=== PATIENT | female | born 1960 | race Caucasian/White ===

== ENCOUNTER 2020-05-20 09:12 | Outpatient (CLI) | payer BC ==
--- NOTE | 2020-06-01 12:17 | Mammography Report ---
UNILATERAL RIGHT DIGITAL SCREENING MAMMOGRAM 3D/2D: 05/20/2020 CLINICAL: Routine screening. Personal history of left breast cancer. Comparison is made to exams dated: 06/08/2019 mammogram, 05/12/2018 mammogram, 04/19/2017 mammogram, and 04/23/2016 mammogram - [facility]. There are scattered fibroglandular elements in right breas t. There are benign post operative findings in the right breast. No significant masses, calcifications, or other findings are seen in the breast. There has been no significant interval change. IMPRESSION: BENIGN There is no mammographic evidence of malignancy. A 1 year screening mammogram is recommended. This exam was interpreted at Station ID: [id number]. NOTE: For mammograms, a report in lay terms will be sent to the patient. Approximately 15% of breast malignancies will not be visualized mammographically. In the management of a palpable breast mass, a negative mammogram must not discourage biopsy of a clinically suspicious lesion. Electronically Signed By: Kristal hidalgo/jeremiah:06/01/2020 11:32:14 ACR BI-RADS Category 2: Benign Finding(s) 3342F PARENCHYMAL PATTERN: (A) - The breast(s) demonstrate(s) scattered fibroglandular densities. BI-RADS CATEGORY: (2) - 2 RECOMMENDATION: (ANNUAL) - Recommend routine annual screening mammography. [id number] 1 year screening LATERALITY: (B)
== END 2020-05-20 09:13 | disposition home or self-care (01) ==
LOC: DI.N 09:12
DX: Z12.31 Encounter for screening mammogram for malignant neoplasm of breast (principal); Z85.3 Personal history of malignant neoplasm of breast
CPT/HCPCS: 77063; 77067

== ENCOUNTER 2021-05-28 12:14 | Outpatient (CLI) | payer OTHER ==
--- NOTE | 2021-06-07 08:44 | Mammography Report ---
UNILATERAL RIGHT DIGITAL SCREENING MAMMOGRAM 3D/2D: 05/28/2021 CLINICAL: Routine screening. Personal history of bilateral breast cancer. Comparison is made to exams dated: 05/20/2020 mammogram - [facility], 06/08/2019 m m[facility], 05/12/2018 mammogram, and 04/19/2017 mammogram - [facility]. There are scattered fibrog landular elements in right breast. There are benign post operative findings in the right breast. No significant masses, calcifications, or other findings are seen in the breast. There has been no significant interval change. IMPRESSION: BENIGN There is no mammographic evidence of malignancy. A 1 year screening mammogram is recommended. This exam was interpreted at Station ID: [id number]. NOTE: For mammograms, a report in lay terms will be sent to the patient. Approximately 15% of breast malignancies will not be visualized mammographically. In the management of a palpable breast mass, a negative mammogram must not discourage biopsy of a clinically suspicious lesion. Electronically Signed By: Jhoan velasco/jeremiah:06/01/2021 07:27:31 ACR BI-RADS Category 2: Benign Finding(s) 3342F PARENCHYMAL PATTERN: (A) - The breast(s) demonstrate(s) scattered fibroglandular densities. BI-RADS CATEGORY: (2) - 2 RECOMMENDATION: (ANNUAL) - Recommend routine annual screening mammography. [id number] 1 year screening LATERALITY: (B)
== END 2021-05-28 12:15 | disposition home or self-care (01) ==
LOC: DI.S 12:14
DX: Z12.31 Encounter for screening mammogram for malignant neoplasm of breast (principal); Z85.3 Personal history of malignant neoplasm of breast

== ENCOUNTER 2021-12-13 16:07 | Outpatient (CLI) | payer OTHER ==
[2021-12-13 16:34] LABS: ALBUMIN 4.4 g/dL (3.2-5.5); ALKALINE PHOSPHATASE 107 IU/L (42-121); ALT ALANINE AMINOTRANSFERASE 19 IU/L (10-60); AST ASPARTATE AMINOTRANSFERASE 23 IU/L (10-42); BILIRUBIN,TOTAL 0.7 mg/dL (0.2-1.0); TOTAL PROTEIN 7.5 g/dL (6.7-8.2)
[2021-12-13 16:47] LABS: BILIRUBIN,DIRECT < 0.1 mg/dL (0.1-0.5)
== END 2021-12-13 16:08 | disposition home or self-care (01) ==
LOC: LAB 16:07
PROVIDERS: ATTEND Physician Assistant
DX: B35.1 Tinea unguium (principal)
CPT/HCPCS: 36415; 80076

== ENCOUNTER 2022-06-20 10:37 | Outpatient (CLI) | payer OTHER ==
--- NOTE | 2022-06-25 09:12 | Mammography Report ---
UNILATERAL RIGHT DIGITAL SCREENING MAMMOGRAM 3D/2D: 06/20/2022 CLINICAL: Routine screening. Personal history of left breast cancer. Comparison is made to exams dated: 05/20/2020 mammogram - [facility], 06/08/2019 m mynorram - [facility], and 05/28/2021 mammogram - [facility]. There are scattered areas of fibroglandular density in the right breast (category b / 25%-50% glandul ar tissue). There are benign post operative findings in the right breast. No significant masses, calcifications, or other findings are seen in the breast. There has been no significant interval change. IMPRESSION: BENIGN There is no mammographic evidence of malignancy. A 1 year screening mammogram is recommended. This exam was interpreted at Station ID: [id number]. NOTE: For mammograms, a report in lay terms will be sent to the patient. Approximately 15% of breast malignancies will not be visualized mammographically. In the management of a palpable breast mass, a negative mammogram must not discourage biopsy of a clinically suspicious lesion. Electronically Signed By: Kristal hidalgo/jeremiah:06/20/2022 15:44:29 ACR BI-RADS Category 2: Benign Finding(s) 3342F PARENCHYMAL PATTERN: (A) - The breast(s) demonstrate(s) scattered fibroglandular densities. BI-RADS CATEGORY: (2) - 2 RECOMMENDATION: (ANNUAL) - Recommend routine annual screening mammography. [id number] 1 year screening LATERALITY: (B)
== END 2022-06-20 10:38 | disposition home or self-care (01) ==
LOC: DI.S 10:37
PROVIDERS: ATTEND Nurse Practitioner Family
DX: Z12.31 Encounter for screening mammogram for malignant neoplasm of breast (principal); Z85.3 Personal history of malignant neoplasm of breast

== ENCOUNTER 2023-08-02 08:00 | Outpatient (CLI) | payer OTHER ==
--- NOTE | 2023-08-02 16:55 | XRAY Report ---
PROCEDURE: Chest 2V INDICATIONS: ACUTE BRONCHITIS TECHNIQUE: 2 views of the chest were acquired. COMPARISON: None. FINDINGS: Surgical changes and devices: None. Lungs and pleura: No pleural effusions or pneumothorax. Lungs are clear. Mediastinum: Mediastinal contours appear normal. Heart size is normal. Bones and chest wall: No suspicious bony lesions. Overlying soft tissues appear unremarkable. IMPRESSION: No acute cardiopulmonary process. Reviewed by: Sarai Duarte MD on 08/02/2023 4:53 PM [facility] Approved by: Sarai Duarte MD on 08/02/2023 4:53 PM [facility] Station ID: [id number]
== END 2023-08-02 23:59 | disposition home or self-care (01) ==
LOC: DI.S 08:00
PROVIDERS: ATTEND Physician Assistant
DX: J20.9 Acute bronchitis, unspecified (principal)

== ENCOUNTER 2023-08-12 09:53 | Outpatient (CLI) | payer OTHER ==
--- NOTE | 2023-08-13 15:36 | Mammography Report ---
UNILATERAL RIGHT DIGITAL SCREENING MAMMOGRAM 3D/2D: 08/12/2023 CLINICAL: Routine screening. Personal history of bilateral breast cancer. Comparison is made to exams dated: 06/20/2022 mammogram, 05/28/2021 mammogram, 05/20/2020 mammogram - [facility], 06/08/2019 mammogram, 05/12/2018 mammogram, and 04/19/2017 mammogram - [facility]. The right breast is almost entirely fatty (category a/<25% glandular tissue). There are benign post operative findings in the right breast. No significant masses, calcifications, or other findings are seen in the breast. There has been no significant interval change. IMPRESSION: BENIGN There is no mammographic evidence of malignancy. A 1 year screening mammogram is recommended. This exam was interpreted at Station ID: [id number]. NOTE: For mammograms, a report in lay terms will be sent to the patient. Approximately 15% of breast malignancies will not be visualized mammographically. In the management of a palpable breast mass, a negative mammogram must not discourage biopsy of a clinically suspicious lesion. Electronically Signed By: Mera suresh/penrad:08/12/2023 12:27:06 ACR BI-RADS Category 2: Benign Finding(s) 3342F PARENCHYMAL PATTERN: (F) - The breast(s) demonstrate(s) diffuse fatty replacement. BI-RADS CATEGORY: (2) - 2 Mammogram [id number] 1 year screening LATERALITY: (B)
== END 2023-08-12 09:54 | disposition home or self-care (01) ==
LOC: DI 09:53
PROVIDERS: ATTEND Physician Assistant
DX: Z12.31 Encounter for screening mammogram for malignant neoplasm of breast (principal); Z85.3 Personal history of malignant neoplasm of breast

== ENCOUNTER 2023-10-08 13:48 | Emergency (ER) | payer OTHER ==
--- NOTE | 2023-10-08 14:15 | ED Physician Documentation ---
PD HPI LOWER EXT INJURY - Stated complaint Stated Complaint: LT LEG INJ - Chief complaint Chief Complaint: Trauma Ext - Additional information Additional information: 63-year-old female was walking down a hill while on a field trip with her school slipped and fell onto her left leg. She noticed immediate pain and swelling she was brought in via EMS with a splint she has got limited flexion and extension to her left ankle due to the swelling and the pain.She did not hit her head no loss of consciousness unable to ambulate on her left lower extremity. 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, Breast cancer : None Psych: None Musculoskeletal: Osteoarthritis Derm: None - Past Surgical History Past Surgical History: Yes Ortho: Hip replacement /[employer]ER: Mastectomy - Present Medications Home Medications: Ambulatory Orders Medication Instructions Recorded Confirmed lamoTRIgine [Subvenite] 100 mg PO BID 10/08/23 10/08/23 oxyCODONE [Roxicodone] 5 mg PO Q4H PRN #15 tablet 10/08/23 - Allergies Allergies/Adverse Reactions: Allergies Allergy/AdvReac Type Severity Reaction Status Date / Time No Known Drug Allergies Allergy Verified 10/08/23 14:39 - Social History Does the pt smoke?: No Smoking Status: Never smoker Does the pt drink ETOH?: Yes Does the pt have substance abuse?: No - Immunizations Immunizations are current?: Yes - POLST Patient has POLST: No PD ED PE NORMAL - Vitals Vital signs reviewed: Yes - General General: Alert and oriented X 3, Well developed/nourished, Other (wincing in pain) - HEENT HEENT: Atraumatic, PERRL - Back Back: No spinal TTP - Derm Derm: Other (Left mitchell, ankle swelling) - Extremities Extremities: Other (LLE: Significant swelling at the lower tib/fib region, limited flexion and extension to the ankle due to tenderness and swelling, tenderness with minimal palpation) Results - Vitals Vitals: Vital Signs - 24 hr 10/08/23 10/08/23 10/08/23 13:56 16:03 18:00 Temperature 36.0 C L Heart Rate 79 75 78 Respiratory 20 16 16 Rate Blood Pressure 136/79 H 126/62 114/78 O2 Saturation 100 97 99 03/12/24 20:13 Temperature 36.4 C L Heart Rate 76 Respiratory 17 Rate Blood Pressure 136/70 H O2 Saturation 100 Oxygen O2 Source Room air - Rads (name of study) Left lower extremity X-rays Relevant Findings:: Final report received, EMP independent interpretation of test, Other (distal tibia fibular fracture) left foot x-rays Relevant Findings:: Final report received, EMP independent interpretation of test, Other (no acute fractures of the foot) Procedures - Splint (location) - Minor left lower extremity Splint applied by: Nurse Type of splint: Short leg, Posterior, Stirrup Other: Patient tolerated well, No complications, Neurovascular intact, Crutches provided PD Medical Decision Making - ED course ED course: 63-year-old female presents emergency department for left lower extremity pain. Multiple x-rays were complete and it does reveal a minimally displaced distal tibia fibula fracture. Fracture is closed. I reached out to Dr. Menon Who says to place the patient short leg splint And send patient home with crutches nonweightbearing. Patient was sent home with narcotics. I am prescribing a short course of short-acting opioid pain medication for this patient. I have reviewed the patients [employer] GENERAL and no concerning findings were noted. I have discussed that the opioids are for short term therapy only, and will not be refilled from the ED. Orthopedic clinic will get patient in on to decide if patient needs to have surgery or not. No reduction warranted for this fracture at this point in time. Patient given strict ER return precautions all questions answered safe for discharge L&I paperwork completed. Departure - Departure Disposition: Home, Self Care Clinical Impression: Tibia/fibula fracture Qualifiers: Encounter type: initial encounter Fracture type: closed Laterality: left Qualified Code(s): S82.202A - Unspecified fracture of shaft of left tibia, initial encounter for closed fracture Instructions: ED Fx Lower Ext Follow-Up: Nnamdi Sibley MD [Provider Admit Priv/Credential] - Prescriptions: oxyCODONE [Roxicodone] 5 mg PO Q4H PRN #15 tablet PRN Reason: Pain >8 Comments: Thank you for trusting us with your care. We have placed you in a splint for your tibia-fibula fracture. I have spoke with on-call orthopedic surgeon Dr. Sibley who has informed the clinic of this fracture of your orders and they should be reaching out to you to try and get you in this for a follow- up appointment. If you do not hear from them by tomorrow would give them a call in the afternoon to make sure that they are aware of this. Do not ambulate on that Left foot at all, we are sending you home with crutches make sure that you are using those to get around. Keep your foot elevated above your heart to help with any inflammation and swelling. I have sent a prescription of oxycodone to [facility] in [place] you can also take at 1000 mg of Tylenol every 8 hours to help with pain and 600 to 800 mg of ibuprofen to also help with pain and swelling. Please come back to the emergency department if you are having severe worsening left lower extremity pain, or any other concerning symptoms. I am prescribing a short course of narcotic pain medication for you. These are potentially dangerous and addictive medications that should be used carefully. These medications may constipate you. Take an vnmt-vyt-mlfhijs stool softener (docusate) twice daily with plenty of water while taking these medications. If you go 24 hours without a bowel movement, take hubr-xef-yrxsifk miralax, per package instructions. Do not drink or drive while taking these medications. If you received narcotic or sedating medications while in the emergency department, do not drive for 24 hours. Store this medication in a safe, secure place and out of reach of children. It is a violation of federal law to give or sell this medication to another person or to use in a manner other than prescribed. The ED will not refill narcotic prescriptions, including prescriptions lost or stolen. To dispose of unwanted medications: 1. [facility] at [address] in [place] has a medication drop box. They accept prescription medications (in pill form) Saturday through Saturday 9:00 a.m. to 5:00 p.m. 2. The [facility] [employer] accepts prescription medications (in pill form only) for disposal year round. Call for more information. 3. Contact the [facility] for the next [facility] sponsored prescription drug collection event. , [phone], or [phone]; Note that many narcotic pain relievers also contain Tylenol/acetaminophen. Please ensure that your total dose of acetaminophen from all sources does not exceed 3 g (3000 mg) per day. Forms: PCP List Discharge Date/Time: 10/08/23 20:05
[2023-10-08] MEDS: HYDROmorphone 0.5 MG/0.5 ML SYRINGE IVP STA ×2 (14:52→16:54)
--- NOTE | 2023-10-08 15:04 | XRAY Report ---
PROCEDURE: Ankle 1-2V LT INDICATIONS: GLF, ankle pain TECHNIQUE: 3 views of the ankle were acquired. COMPARISON: None. FINDINGS: Bones: Comminuted, displaced fracture of the distal tibia. Soft tissues: No tibiotalar joint effusion. Achilles tendon appears normal. IMPRESSION: Distal tibial fracture. Reviewed by: Lenka Conner MD, PhD on 10/08/2023 3:03 PM PDT Approved by: Lenka Conner MD, PhD on 10/08/2023 3:03 PM PDT Station ID: [id number]
--- NOTE | 2023-10-08 15:05 | XRAY Report ---
PROCEDURE: Foot 3+V LT INDICATIONS: GLF, foot pain TECHNIQUE: 3 views of the foot were acquired. COMPARISON: None. FINDINGS: Bones: No fractures or dislocations. No suspicious bony lesions. First MTP joint osteoarthritis. Soft tissues: No tibiotalar joint effusion. Achilles tendon appears normal. IMPRESSION: No left foot fracture or acute osseous lesion. If symptoms and/or clinical concern for pathology pers ists, further assessment with repeat plain film radiographs (7-10 days) or advanced imaging (CT, MR, bone scan) should be considered. Reviewed by: Lenka Conner MD, PhD on 10/08/2023 3:04 PM PDT Approved by: Lenka Conner MD, PhD on 10/08/2023 3:04 PM PDT Station ID: [id number]
[2023-10-08] MEDS: ACETAMINOPHEN 325 MG TABLET PO STA (16:54)
[2023-10-08] MEDS: oxyCODONE 5 MG TABLET PO STA (16:54)
--- NOTE | 2023-10-08 17:53 | XRAY Report ---
PROCEDURE: Tib/Fib LT INDICATIONS: Known distal tib fib fx, need to evaluate proximal tib fib TECHNIQUE: 2 views of the tibia and fibula were acquired. COMPARISON: Ankle films performed the same day. FINDINGS: Bones: Spiral fracture of the distal tibial diaphysis mild displacement. Mildly displaced distal fib ular fracture at the level of the syndesmosis. Proximal tibia and fibula appear intact. Soft tissues: No suspicious soft tissue calcifications or masses. IMPRESSION: Known distal tibia and fibular fracture Reviewed by: Mera Duran MD on 10/08/2023 5:52 PM PDT Approved by: Mera Duran MD on 10/08/2023 5:52 PM PDT Station ID: [id number]
[2023-10-08] MEDS: oxyCODONE/ACET 5/325 Prepack 4 PO STA (19:58)
[2023-10-08 20:21] VITALS: BP 136/70; O2SAT 100
== END 2023-10-08 20:05 | disposition home or self-care (01) ==
LOC: ED 13:48
DX: S82.202A Unspecified fracture of shaft of left tibia, initial encounter for closed fracture (principal); W01.0XXA Fall on same level from slipping, tripping and stumbling without subsequent striking against object, initial encounter; Y93.01 Activity, walking, marching and hiking; Y99.0 Civilian activity done for income or pay
CPT/HCPCS: 1040M; 29515; 73590; 73600; 73630; 96374; 96376; 99283; 99284; A9270; J1170

== ENCOUNTER 2023-10-16 07:14 | Day surgery (SDC) | payer OTHER ==
[2023-10-16] MEDS: LACTATED RINGERS 1,000 ML IV ONE ×2 (07:28→12:58)
[2023-10-16] MEDS ORDERED: ceFAZolin 2 GM VIAL ONE (07:30)
[2023-10-16] MEDS ORDERED: VANCOMYCIN 1 GM VIAL ONE ×2 (07:35→07:36)
[2023-10-16] MEDS: ACETAMINOPHEN 500 MG TABLET PO ONE (07:58)
[2023-10-16] MEDS: CELECOXIB 100 MG CAPSULE PO ONE (07:59)
[2023-10-16] MEDS: DEXAMETHASONE 10 MG/ML VIAL ONE (07:59)
[2023-10-16] MEDS ORDERED: MIDAZOLAM 2 MG/2 ML VIAL ONE (08:26)
[2023-10-16] MEDS ORDERED: fentaNYL 100 MCG/2 ML VIAL ONE ×2 (08:28→12:47)
[2023-10-16] MEDS ORDERED: ONDANSETRON 4 MG/2 ML VIAL ONE ×2 (08:28→12:39)
[2023-10-16] MEDS ORDERED: PROPOFOL 200 MG/20 ML VIAL IVP ONE (08:28)
[2023-10-16] MEDS ORDERED: ROCURONIUM 50 MG/5 ML VIAL ONE ×2 (08:28→10:03)
[2023-10-16] MEDS ORDERED: LIDOCAINE-PF 2% 10 ML AMP SUBQ ONE (08:28)
[2023-10-16] MEDS ORDERED: LIDOCAINE-MPF 1% 30 ML VIAL ONE (08:33)
[2023-10-16] MEDS ORDERED: BUPIVACAINE 0.5% PF 10 ML VIAL ONE (08:33)
--- NOTE | 2023-10-16 09:15 | ANESTHESIA ---
Pre-Anesthesia VS, & Labs - Diagnosis L tibia fracture - Procedure ORIF L tibia Vital Signs: Temp Pulse Resp BP Pulse Ox O2 Flow Rate 36.5 C 88 16 128/68 100 10/16/23 07:30 10/16/23 07:30 10/16/23 07:30 10/16/23 07:30 10/16/23 07:30 Height: 5 ft 4 in Weight (kg): 78.5 kg Body Mass Index: 29.7 BMI Classification: Overweight - NPO >8 hours - Is Patient ?: No Home Medications and Allergies Home Medications: Ambulatory Orders Acetaminophen [Tylenol] 650 mg PO Q6H PRN 10/14/23 Ibuprofen [Motrin] 600 mg PO Q6H PRN 10/14/23 lamoTRIgine [Subvenite] 100 mg PO BID 10/08/23 Acetaminophen [Tylenol] 650 mg PO Q6H PRN 10/14/23 Ibuprofen [Motrin] 600 mg PO Q6H PRN 10/14/23 Allergies/Adverse Reactions: Allergies Allergy/AdvReac Type Severity Reaction Status Date / Time No Known Drug Allergies Allergy Verified 10/08/23 14:39 Anes History & Medical History - Anesthetic History Anesthesia Complications: reports: No previous complications Family history of Anesthesia Complications: Denies Family history of Malignant Hyperthermia: Denies - Medical History Cardiovascular: reports: None Pulmonary: reports: Pneumonia Gastrointestinal: reports: None Urinary: reports: None Neuro: reports: Seizure disorder Musculoskeletal: reports: Osteoarthritis Endocrine/Autoimmune: reports: None Blood Disorders: reports: None Skin: reports: None Smoking Status: Never smoker Psychosocial: reports: Alcohol History of Cancer?: Yes - Surgical History General: reports: Colonoscopy Gynecologic: reports: Mastectomy Orthopedic: reports: Hip replacement Exam General: Alert, Oriented x3, Cooperative Dental: Other (prominent incisors) Mouth Openin Fingerbreadth Neck Mobility: Normal Mallampati classification: III Thyromental Distance: less than 4 cm Respiratory: Lungs clear Cardiovascular: Regular rate Plan Anesthesia Type: General (pt refuses regional anesthesia and surgeon requests no PNB) Consent for Procedure(s) Verified and Reviewed: Yes Code Status: Attempt Resuscitation ASA classification: 2-Mild systemic disease Is this case an emergency?: No
[2023-10-16] MEDS ORDERED: MORPHINE 2 MG/ML CARPUJECT IVP PRN (09:16)
[2023-10-16] MEDS ORDERED: METOCLOPRAMIDE 10 MG/2 ML VIAL IVP PRN (09:16)
[2023-10-16] MEDS ORDERED: ATROPINE ABBOJECT 1 MG/10 ML SYRINGE IVP PRN (09:16)
[2023-10-16] MEDS ORDERED: ePHEDrine 50 MG/ML VIAL IVP PRN (09:16)
[2023-10-16] MEDS ORDERED: NALOXONE 0.4 MG/ML VIAL IVP PRN (09:16)
[2023-10-16] MEDS ORDERED: ONDANSETRON 4 MG/2 ML VIAL IVP PRN ×2 (09:16→12:58)
[2023-10-16] MEDS ORDERED: HYDROmorphone 0.5 MG/0.5 ML SYRINGE IVP PRN (09:16)
[2023-10-16] MEDS ORDERED: fentaNYL 100 MCG/2 ML VIAL IVP PRN (09:16)
[2023-10-16] MEDS ORDERED: HYDROmorphone 1 MG/ML CARPUJECT ONE ×2 (09:24→11:17)
[2023-10-16] MEDS: BUPIVACAINE 0.5% PF 30 ML VIAL INFIL ONE ×2 (09:40)
[2023-10-16] MEDS: LIDOCAINE 1% 50 ML MDV SUBQ ONE ×2 (09:42)
[2023-10-16] MEDS ORDERED: LACTATED RINGERS 1,000 ML IV SCH (10:00)
[2023-10-16] MEDS ORDERED: SUGAMMADEX 200 MG/2 ML VIAL IVP ONE (12:22)
[2023-10-16] MEDS: VANCOMYCIN 1 GM VIAL MC ONE (12:22)
[2023-10-16] MEDS ORDERED: ceFAZolin 1 GM VIAL ONE (12:26)
[2023-10-16] MEDS ORDERED: KETOROLAC 30 MG/ML VIAL ONE (12:39)
--- NOTE | 2023-10-16 12:41 | OPERATIVE REPORT ---
Operative Report - General Procedure Date: 10/16/23 Planned Procedure: Open reduction internal fixation left tibia with intramedullary jeff and screws Pre-Op Diagnosis: Closed, displaced, mildly comminuted fracture left tibia and fibula Procedure Performed: Open reduction internal fixation left tibia with [employer] titanium static locked intramedullary nail: 10 mm x 34 cm, 5 mm locking screws proximally x 2 and distally x 3; open reduction internal fixation posterior malleolus left tibia with 4.0 mm partially-threaded cancellous screw Post Op Diagnosis: Same as preoperative diagnosis - Procedure Note Primary Surgeon: Nnamdi Sibley MD Secondary Surgeon: Robert Reynaga MD, Delores Cesar PAC Anesthesia Provider: Heidy Deleon CRNA Anesthesia Technique: General ET tube Estimated Blood Loss (mL): 100 Indications: This is a 63-year-old relatively active and relatively healthy woman who took a fall walking, slipped from ground-level and sustained an isolated closed injury to left lower leg approximately 1 week ago. She was evaluated in the emergency room and placed in the short leg sugar-tong splint. She has been evaluated in the orthopedic office and has been elevating her left leg to reduce swelling. She has no symptoms or signs of compartment syndrome and her pain is decreasing. Her pain is isolated to the left lower leg. Her neurovascular is intact to left leg. Her routine x-rays show a displaced fracture of the distal third of the left tibia and fibula. This is a short oblique fracture of the distal tibia with mild comminution, displaced fibular fracture distal to the tibial fracture. There is no evidence of a posterior malleolus fracture on preoperative xrays. She did sign informed consent for the procedure, open reduction internal fixation left tibia and this was witnessed prior to her surgery Findings: . The fractures that were encountered were as described and confirmed with C arm image fluoroscopy. In addition a posterior malleolar fracture was identified during the intramedullary rodding that was mildly displaced. Complications: None - Other Other Information/Narrative: The patient was brought to the operating room. She was placed in the supine position. A gel support was placed beneath the left buttock. A foam ramp was placed beneath the left leg. No pneumatic tourniquet was utilized. The C arm was covered with sterile drape. The left lower extremity was prepped and draped in a sterile manner in the usual fashion. A timeout procedure was performed by the entire operating room team and all were in agreement. A lateral parapatellar incision was utilized with the knee in a semiextended position. The lateral retinaculum was incised but the synovium was not entered, using a extra-articular approach. The patellar tendon was identified laterally and gently retracted medially with the patella.I tried to use a guidepin initially but it could not displaced the patella enough lateral. Therefore, a starting awl was utilized, engaging the lateral tibial spine on the AP view and in the anterior cortex on the lateral view. In the C-arm image intensifier was used to obtain a true AP view by having the lateral tibial plateau bisects the fibular head. The guidepin was then pushed from proximal to distal and was confirmed to be in good position on AP and lateral views. The guidepin was pushed across the fracture site into the distal tibia. The length of the guidepin was measured, 33.5 cm. Reaming was carried out and half millimeter increments from 9 mm to 11. A 11 mm [employer]hew titanium jeff, 34 cm in length was utilized and impacted gently down the tibial canal to the fracture. The fracture was then reduced manually and using the jeff before it was pushed across the fracture site to the distal tibial physis scar. The fracture aligned well but there was slight distraction. The distal locking screws were inserted to from medial to lateral and 1 from anterior to posterior. The anterior incision was made slightly larger to the exposed tendon or neurovascular bundle which was not encountered. The locking screws were inserted using a freehand technique. After the distal locking screws have inserted, the fracture was impacted using a retrograde technique. On the lateral view the fracture was impacted. 2 proximal locking screws were inserted through the proximal locking guide. The fracture appeared to be stable and satisfactory aligned. A posterior malleolar fracture was encountered with a 2 mm step-off. This was reduced manually and with dorsiflexion. A small incision medial to the Achilles tendon was made in line with the fracture site. This allowed for insertion of a guidepin and cannulated screw fixation using a 2.7 mm cannulated drill and a 4.0 mm partially-threaded cancellous screw. This provided compression to the posterior malleolus and stabilization of the posterior malleolar fracture.Final C-arm image intensifier x-rays were obtained of the fracture, knee and ankle and both AP and lateral views. The wounds were irrigated. The lateralParapatellar incision was closed with vancomycin powder, 2 oh strata fix to repair the retina culum,, Fluoroscopy for the subcutaneous tissue and natalia for the skin. The locking screw sites were closed with natalia. The incision sites were infiltrated with 1% Xylocaine and 0.25% bupivacaine mixture.A total of 30 cc of local anesthetic solution was utilized, 50-50 mixture. A well-padded short leg fiberglass splint was applied with gauze and Xeroform to the incision and cast padding as well as a posterior splint. She did receive a 2 grams of Ancef prior to the incision and a 2 grams of Ancef during the procedure. A physician topographical field assistant was medically necessary to help with prepping and draping, positioning, protection of vital structures, assistance during the procedure including wound closure, dressing and/or splinting.
[2023-10-16] MEDS ORDERED: ACETAMINOPHEN 500 MG TABLET PO PRN (12:58)
[2023-10-16] MEDS ORDERED: CELECOXIB 100 MG CAPSULE PO PRN (12:58)
[2023-10-16] MEDS ORDERED: oxyCODONE 5 MG TABLET PO PRN (12:58)
--- NOTE | 2023-10-16 14:20 | ANESTHESIA POST OP EVALUATION ---
Anesthesia Post Eval - Post Anesthesia Eval Vitals: Last Vital Signs Temp 37.1 C 10/16/23 14:00 Pulse 83 10/16/23 14:00 Resp 14 10/16/23 14:00 BP 128/68 10/16/23 14:00 Pulse Ox 98 10/16/23 14:00 O2 Flow Rate CV Function Including HR & BP: Stable Pain Control: Satisfactory Nausea & Vomiting: Negative Mental Status: Baseline Respiratory Status: Airway Patent Hydration Status: Satisfactory Anesthesia Complications: None
[2023-10-16 14:58] VITALS: BP 125/64; O2SAT 100
--- NOTE | 2023-10-17 16:51 | XRAY Report ---
PROCEDURE: OR C-Arm Procedure INDICATIONS: ORIF Left tibia FLUORO TIME: 2.23 MIN TECHNIQUE: Intraoperative fluoroscopic image. COMPARISON: X-ray lower extremity 10/08/2023 FINDINGS: Single intraoperative fluoroscopic image demonstrates fixation rods overlying the femur, tibia and fi bula. IMPRESSION: Intraoperative fixation. Reviewed by: Sarai Duarte MD on 10/17/2023 4:50 PM PDT Approved by: Sarai Duarte MD on 10/17/2023 4:50 PM PDT Station ID: [id number]
== END 2023-10-16 07:15 | disposition home or self-care (01) ==
LOC: SDS 07:14
PROVIDERS: ATTEND Orthopaedic Surgery
DX: S82.232A Displaced oblique fracture of shaft of left tibia, initial encounter for closed fracture (principal); S82.832A Other fracture of upper and lower end of left fibula, initial encounter for closed fracture; S82.892A Other fracture of left lower leg, initial encounter for closed fracture
CPT/HCPCS: 27766; 27827; A9270; C1713; J1170; J3370; J7120

== ENCOUNTER 2023-12-03 09:42 | Outpatient (CLI) | payer OTHER ==
--- NOTE | 2023-12-04 00:15 | XRAY Report ---
PROCEDURE: Tib/Fib LT INDICATIONS: Healing instrumented fracture TECHNIQUE: 2 views of the tibia and fibula were acquired. COMPARISON: 10/08/2023 FINDINGS: Bones: Distal left oblique tibial fracture shows softening the fracture lines and bridging callus mclean pported by intramedullary jeff and fixation screws in good position Soft tissues: No suspicious soft tissue calcifications or masses. IMPRESSION: Healing instrumented oblique fibular fracture Reviewed by: Markell Sinclair MD on 12/03/2023 11:14 PM ALEXANDER Approved by: Markell Sinclair MD on 12/03/2023 11:14 PM ALEXANDER Station ID: [id number]
== END 2023-12-03 09:43 | disposition home or self-care (01) ==
LOC: DI 09:42
PROVIDERS: ATTEND Orthopaedic Surgery
DX: S82.232D Displaced oblique fracture of shaft of left tibia, subsequent encounter for closed fracture with routine healing (principal)

== ENCOUNTER 2024-01-16 13:48 | Outpatient (CLI) | payer OTHER ==
--- NOTE | 2024-01-16 20:16 | XRAY Report ---
PROCEDURE: Tib/Fib LT INDICATIONS: DISPLACED OBLIQUE FX OF SHAFT OF LEFT TIBIA TECHNIQUE: 2 views of the tibia and fibula were acquired. COMPARISON: 12/03/2023 FINDINGS: Bones: Generalized decreased osseous mineralization present. Intramedullary tibial jeff in good posit ion. Distal tibial fracture is in good position without evidence of bridging callus. Ankle mortise is maintained. Soft tissues: No suspicious soft tissue calcifications or masses. IMPRESSION: Healing instrumented distal tibial fracture Reviewed by: Markell Sinclair MD on 01/16/2024 7:15 PM AKDT Approved by: Markell Sinclair MD on 01/16/2024 7:15 PM AKDT Station ID: [id number]
== END 2024-01-16 13:49 | disposition home or self-care (01) ==
LOC: DI 13:48
PROVIDERS: ATTEND Physician Assistant Surgical
DX: S82.232D Displaced oblique fracture of shaft of left tibia, subsequent encounter for closed fracture with routine healing (principal)

== ENCOUNTER 2024-02-27 10:10 | Outpatient (CLI) | payer OTHER ==
--- NOTE | 2024-02-27 21:27 | XRAY Report ---
PROCEDURE: Tib/Fib LT INDICATIONS: DISPLACED OBLIQUE FX OF SHAFT OF L TIBIA TECHNIQUE: 2 views of the tibia and fibula were acquired. COMPARISON: Left tibia fibula radiographs 01/16/2024, 12/03/2023, 10/08/2023. FINDINGS: Bones: Prior fracture of the distal tibia. Intramedullary tibial jeff with screw fixation. No hardwar e fracture. No aria screw lucency. No dislocations. No suspicious bony lesions. Soft tissues: No suspicious soft tissue calcifications or masses. IMPRESSION: Stable fixation hardware. Reviewed by: Taqueria Montero MD on 02/27/2024 9:25 PM PDT Approved by: Taqueria Montero MD on 02/27/2024 9:25 PM PDT Station ID: [id number]
== END 2024-02-27 10:11 | disposition home or self-care (01) ==
LOC: DI 10:10
PROVIDERS: ATTEND Orthopaedic Surgery
DX: S82.232D Displaced oblique fracture of shaft of left tibia, subsequent encounter for closed fracture with routine healing (principal)